=== PATIENT | female | born 1995 | race Caucasian/White ===

== ENCOUNTER 2017-11-16 18:56 | Emergency (ER) | payer MEDICAID ==
[~2017-11-16] VITALS: Ht 154.9 cm; Wt 116.8 kg
[2017-11-16 19:06] VITALS: TEMP 99
[2017-11-16] MEDS ORDERED: PROZAC40 MG PO (19:09)
[2017-11-16 22:11] LABS: COLLECTION METHOD CLEAN CATCH
[2017-11-16 22:12] LABS: BASO # 0.1 (0.0-0.2); BASO % 0.6 % (0.0-2.0); EOS # 0.1 (0.0-0.7); EOS % 1.2 % (0-4.0); GRAN # 7.3 (1.4-6.5); GRAN % 64.1 % (42.2-75.2); HEMATOCRIT 39.3 % (37.0-47.0); HEMOGLOBIN 12.8 g/dl (12.5-16.0); LYMPH # 3.3 (1.2-3.4); LYMPH % 28.5 % (20.0-51.0); MEAN CELL VOLUME 92 fl (80.0-100.0); MEAN CORPUSCULAR HEMOGLOBIN 30 pg (27.0-31.0); MEAN CORPUSCULAR HGB CONC 33 g/dl (33.0-37.0); MEAN PLATELET VOLUME 9.3 fl (7.4-10.4); MONO # 0.6 (0.1-0.6); MONO % 5.4 % (1.7-9.3); PLATELET COUNT 311 K/mm3 (130-400); RED BLOOD COUNT 4.26 M/mm3 (4.10-5.30); REDCELL DISTRIBUTION WIDTH-CV 14.3 % (11.5-14.5)
[2017-11-16 22:18] LABS: MUCOUS Present /lpf; PH 5 (5-8); URINE APPEARANCE Hazy; URINE BACTERIA Rare /hpf; URINE BILIRUBIN Negative (NEGATIVE); URINE BLOOD Negative (NEGATIVE); URINE CALCIUM OXALATE CRYSTAL Present /hpf; URINE COLOR Amber; URINE GLUCOSE Negative (NEGATIVE); URINE KETONE Trace (NEGATIVE); URINE LEUKOCYTE ESTERASE 1+ (NEGATIVE); URINE NITRATE Negative (NEGATIVE); URINE PROTEIN(semi-quant) 1+ (NEGATIVE)
[2017-11-16 22:23] LABS: TRICYCLIC ANTIDEPRESS URINE NEGATIVE
[2017-11-16 22:57] LABS: ALBUMIN 4.8 gm/dL (3.5-5.0); BILIRUBIN,TOTAL 0.3 mg/dL (0.0-1.0); CALCIUM 9.6 mg/dL (8.4-10.2); CREATININE, serum 0.71 mg/dL (0.52-1.25); MAGNESIUM 1.9 mg/dL (1.6-2.3); PHOSPHOROUS 4.1 mg/dL (2.5-4.5); POTASSIUM 3.7 mmol/L (3.4-5.0); TOTAL PROTEIN 8.3 gm/dL (6.4-8.2)
[2017-11-16 23:27] LABS: TSH w REFLEX 4.74 uIU/mL (0.465-4.680)
[2017-11-16] MEDS ORDERED: MACROBID 1100 MG/CAP PO (23:41)
[2017-11-17 00:07] VITALS: BP 112/69; PULSE 71
== END 2017-11-17 00:27 | disposition home or self-care (01) ==
LOC: COL.ER 18:56
PROVIDERS: Emergency Medicine
DX: R00.2 Palpitations (principal)